=== PATIENT | male | born 1985 | race Caucasian/White ===

== ENCOUNTER 2016-12-19 00:47 | Emergency (ER) | payer OTHER ==
[~2016-12-19] VITALS: Ht 185.4 cm; Wt 100.3 kg
[2016-12-19 00:50] VITALS: BP 124/82
[2016-12-19 02:50] LABS: HEMATOCRIT 39.2 % (38.0-50.0); MCH 29.5 PG (29.0-34.0); MCHC 32.9 G/DL (30.0-36.0); MCV 89.7 FL (86-99); MEAN PLAT.VOLUME 10.1 uM^3 (9.0-12.4); PLATELET COUNT 272 K/uL (156-360); RBC DIS.WIDTH-CV 11.9 % (11.8-14.6); RBC DIS.WIDTH-SD 38.7 % (39-53); RED BLOOD COUNT 4.37 M/uL (4.00-5.50); WHITE BLOOD COUNT 11.3 K/uL (4.1-10.2)
[2016-12-19 03:45] LABS: GFR ESTIMATE (CALCULATED) > 59 mL/min/; GLUCOSE 90 mg/dL (70-99); UREA NITROGEN (BUN) 13 mg/dL (9-23)
[2016-12-19 03:46] LABS: ALKALINE PHOSPHATASE 75 IU/L (3-129); CHLORIDE 108 MEQ/L (99-109); POTASSIUM 3.8 MEQ/L (3.7-5.4); SODIUM 141 MEQ/L (136-147); TOTAL BILIRUBIN 0.2 MG/DL (0.0-1.0)
[2016-12-19 03:47] LABS: ANION GAP 9 MEQ/L (2-14)
== END 2016-12-19 02:00 | disposition home or self-care (01) ==
LOC: EME 00:47
DX: F11.23 Opioid dependence with withdrawal (principal); Z88.0 Allergy status to penicillin; F17.200 Nicotine dependence, unspecified, uncomplicated
CPT/HCPCS: 80053; 81003; 85027; 99281; 99284